=== PATIENT | male | born 1980 | race Caucasian/White ===

== ENCOUNTER 2021-05-07 22:26 | Emergency (ER) | payer BC, OTHER ==
[2021-05-07 22:32] VITALS: BP 148/83; PULSE 61; TEMP 98; BMI 23.1
[2021-05-07] MEDS ORDERED: DIPHTH,PERTUSS(ACELL),TET 0.5 ML DISP.SYRIN IM ONE ×2 (23:03→23:07)
== END 2021-05-07 23:59 | disposition home or self-care (01) ==
LOC: FER 22:26
PROC: 3E0234Z Introduction of Serum, Toxoid and Vaccine into Muscle, Percutaneous Approach (ICD-10-PCS; principal; 2021-05-07)
PROC: 0HQEXZZ Repair Left Lower Arm Skin, External Approach (ICD-10-PCS; principal; 2021-05-07)
DX: S51.812A Laceration without foreign body of left forearm, initial encounter (principal); W26.8XXA Contact with other sharp object(s), not elsewhere classified, initial encounter
CPT/HCPCS: 90715; 99282-25

== ENCOUNTER 2022-01-26 22:41 | Emergency (ER) | payer BC, OTHER ==
[2022-01-26 22:49] VITALS: BMI 23.1
[2022-01-26 23:19] VITALS: BP 123/61; PULSE 63; TEMP 99.4
== END 2022-01-26 23:44 | disposition home or self-care (01) ==
LOC: FER 22:41
DX: S86.011A Strain of right Achilles tendon, initial encounter (principal); X50.0XXA Overexertion from strenuous movement or load, initial encounter
CPT/HCPCS: 99281-25

== ENCOUNTER 2022-01-31 04:12 | Day surgery (SDC) | payer BC, OTHER ==
[2022-01-30 14:08] VITALS: BMI 23.1
[2022-01-31] MEDS ORDERED: MIDAZOLAM HCL 2 MG/2 ML SINGLE DOSE VIAL ONE ×4 (11:16→12:21)
[2022-01-31] MEDS ORDERED: FENTANYL CITRATE/PF 50 MCG/ML VIAL ONE ×2 (11:17→13:24)
[2022-01-31] MEDS ORDERED: ROPIVACAINE HCL 0.5% 30ML VIAL ONE (11:24)
[2022-01-31] MEDS ORDERED: ceFAZolin SODIUM 1 GM VIAL IVPB ONE (12:15)
[2022-01-31] MEDS ORDERED: PROPOFOL 20 ML ONE ×2 (12:16→12:32)
[2022-01-31] MEDS ORDERED: ONDANSETRON 4 MG/2 ML VIAL IVPUSH PRN (12:23)
[2022-01-31] MEDS ORDERED: oxyCODONE HCL 5 MG TABLET PO PRN ×2 (12:23)
[2022-01-31] MEDS ORDERED: KETAMINE HCL 200 MG/20 ML VIAL ONE (12:26)
[2022-01-31] MEDS ORDERED: LACTATED RINGERS SOLUTION 1,000 ML IV SCH (12:30)
[2022-01-31] MEDS ORDERED: LIDOCAINE 1%/EPI 1:100000 (20 ML MULTI DOSE VIAL) IJ ONE (12:46)
[2022-01-31 18:04] VITALS: BP 111/72; PULSE 54; TEMP 98.8
== END 2022-01-31 16:30 | disposition home or self-care (01) ==
LOC: JASU-SURG 04:12
PROVIDERS: ATTEND Orthopaedic Surgery
PROC: 0LUN07Z Supplement Right Lower Leg Tendon with Autologous Tissue Substitute, Open Approach (ICD-10-PCS; principal; 2022-01-31 11:15)
DX: S86.011A Strain of right Achilles tendon, initial encounter (principal); X58.XXXA Exposure to other specified factors, initial encounter; Y93.9 Activity, unspecified; Y92.9 Unspecified place or not applicable; Y99.9 Unspecified external cause status
CPT/HCPCS: 27652; L8699; 94760